=== PATIENT | female | born 1975 | race Caucasian/White ===

== ENCOUNTER 2021-01-27 12:41 | Emergency (ER) | payer SELFPAY ==
[2021-01-27] MEDS ORDERED: Lactated Ringers 1,000 ML IV ONE (13:47)
[2021-01-27] MEDS ORDERED: Ketorolac 30 MG/ML SDV IVPUSH ONE (13:47)
[2021-01-27] MEDS ORDERED: Metoclopramide 10 MG/2 ML SDV IVPUSH ONE (13:47)
[2021-01-27] MEDS ORDERED: Sodium Chloride 0.9% 10 ML Syringe FLUSH PRN (13:47)
[2021-01-27] MEDS ORDERED: diphenhydrAMINE 50 MG/ML SDV IVPUSH ONE (13:47)
--- NOTE | 2021-01-27 13:47 | EDM.PDOC ---
ED HPI GENERAL MEDICAL PROBLEM - General Chief Complaint: Headache Stated Complaint: MIGRAINE Time Seen by Provider: 01/27/21 13:47 Source of Information: Reports: Patient History Limitations: Reports: No Limitations - History of Present Illness INITIAL COMMENTS - FREE TEXT/NARRATIVE: Patient comes emergency department today with complaints of a headache nausea and vomiting. This patient has some chronic migraine where she has migraines about 3-4 times a month. She is on some prophylactic. She has had a headache the last couple of days and she is taking her typical prophylaxis or treatment abortive therapy without resolution. Since last night she has had primarily pain but on the right side of her head that is throbbing and behind her right eye this is very typical of her chronic migraines. This is not her worst migraine she is ever had. She has been nauseated and vomiting multiple times at home. She is unable to keep her other medications down. She complains of photophobia and phonophobia. She does have some visual changes in the lateral aspect of her vision which is typical for her migraine. No flashers. No double vision. No paresthesias of her upper or lower extremities. No change in the functionality of her upper or lower extremities. No chest pain no shortness of breath or difficulty breathing. No weakness dizziness lightheadedness. No syncope. No abdominal pain. No hematuria dysuria or urinary frequency. No black or tarry stools. No loss of bowel or bladder. No Covid exposure no Covid symptoms. Headache Pain Score (Numeric/FACES): 9 - Related Data Allergies Allergy/AdvReac Type Severity Reaction Status Date / Time calcium [From DHEA] Allergy Other Verified 01/27/21 12:55 calcium carbonate [From DHEA] Allergy Other Verified 01/27/21 12:55 codeine Allergy Other Verified 01/27/21 12:55 hydroxyzine [From Vistaril] Allergy Other Verified 01/27/21 12:55 prasterone (DHEA) [From DHEA] Allergy Other Verified 01/27/21 12:55 [id number] Antimigraine Allergy Other Verified 01/27/21 12:55 Agents Home Meds: Home Meds Insulin Degludec [Tresiba] 120 unit SQ DAILY 01/27/21 [History] Ubrogepant [Ubrelvy] 50 mg PO ASDIRECTED 01/27/21 [History] cloNIDine [Catapres-TTS 1] 1 patch TD Q7D 01/27/21 [History] tiZANidine HCl [Zanaflex] 4 mg PO TID PRN 01/27/21 [History] Past Medical History Cardiovascular History: Reports: Hypertension Neurological History: Reports: Migraines Endocrine/Metabolic History: Reports: Diabetes, Type II Social & Family History - Tobacco Use Tobacco Use Status *Q: Never Tobacco User ED ROS GENERAL - Review of Systems Review Of Systems: Comprehensive ROS is negative, except as noted in HPI. - Physical Exam Exam: See Below Exam Limited By: No Limitations General Appearance: Alert, WD/WN, No Apparent Distress, Obese (Morbidly) Eye Exam: Bilateral Eye: EOMI, PERRL Ears: Normal External Exam, Normal TMs Nose: Normal Inspection, Normal Mucosa Throat/Mouth: Normal Inspection, Normal Lips, Normal Teeth, Normal Oropharynx, Normal Voice Head Exam: Atraumatic, Normocephalic Neck: Normal Inspection, Supple, Non-Tender, Full Range of Motion Respiratory/Chest: No Respiratory Distress, Lungs Clear, Normal Breath Sounds, No Accessory Muscle Use, Chest Non-Tender Cardiovascular: Normal Peripheral Pulses, Regular Rate, Rhythm GI/Abdominal: Normal Bowel Sounds, Soft, Non-Tender (Female) Exam: Deferred Rectal (Female) Exam: Deferred Neuro Exam (Abbreviated): Alert, Oriented, CN II-XII Intact, Normal Cognition, Normal Gait, Normal Reflexes, No Motor/Sensory Deficits DTR: 0: Achilles (L), 2+: Bicep (R), Bicep (L), Patella (R), Patella (L), Achilles (R) Back Exam: Normal Inspection, Full Range of Motion Extremities: Normal Inspection, Normal Range of Motion, Non-Tender, No Pedal Edema, Normal Capillary Refill Psychiatric: Normal Affect, Normal Mood Skin Exam: Warm, Dry, Intact, Normal Color, No Rash Course - Vital Signs Last Recorded V/S: Last Vital Signs Temp 98.4 F 01/27/21 12:41 Pulse 95 01/27/21 12:41 Resp 18 01/27/21 12:41 BP 174/90 H 01/27/21 15:24 Pulse Ox 98 01/27/21 12:41 - Orders/Labs/Meds Orders: Active Orders 24 hr Category Date Time Status Peripheral IV Insertion Adult [OM.PC] Stat Oth 01/27/21 13:47 Ordered Labs: Laboratory Tests 01/27/21 01/27/21 Range/Units 14:03 14:03 WBC 8.0 (4.0-10.0) x10^3/uL RBC 4.62 (4.00-5.50) x10^6/uL Hgb 13.6 (12.0-16.0) g/dL Hct 40.6 (33.0-47.0) % MCV 87.9 (78.0-93.0) fL MCH 29.4 (26.0-32.0) pg MCHC 33.5 (32.0-36.0) g/dL RDW Coeff of Lalita 13.4 (10.0-15.0) % Plt Count 299 (130-400) x10^3/uL Neut % (Auto) 68.3 (50.0-80.0) % Lymph % (Auto) 21.7 L (25.0-50.0) % [place] % (Auto) 5.7 (2.0-11.0) % Eos % (Auto) 3.7 (0.0-4.0) % Baso % (Auto) 0.6 (0.2-1.2) % Sodium 140 (136-145) mmol/L Potassium 4.0 (3.5-5.1) mmol/L Chloride 104 (98-107) mmol/L Carbon Dioxide 30 (21-32) mmol/L Anion Gap 10.0 (5-15) mmol/L BUN 9 (7-18) mg/dL Creatinine 0.9 (0.55-1.02) mg/dL Est Cr Clr Drug Dosing TNP Estimated GFR (MDRD) > 60 Glucose 186 H (74-106) mg/dL Calcium 8.9 (8.5-10.1) mg/dL Corrected Calcium 9.30 (8.5-10.1) mg/dL Total Bilirubin 0.3 (0.2-1.0) mg/dL AST 11 L (15-37) U/L ALT 22 (14-59) U/L Alkaline Phosphatase 88 (46-116) U/L C-Reactive Protein 0.9 (<=0.9) mg/dL Total Protein 7.1 (6.4-8.2) g/dL Albumin 3.5 (3.4-5.0) g/dL Globulin 3.6 Albumin/Globulin Ratio 0.97 TSH, Ultra Sensitive 0.374 (0.358-3.74) uIU/mL Meds: Medications Discontinued Medications Generic Name Dose Route Start Last Admin Trade Name Montyq PRN Reason Stop Dose Admin Diphenhydramine HCl 25 mg 01/27/21 13:47 01/27/21 14:16 Diphenhydramine 50 Mg/Ml Sdv IVPUSH 01/27/21 13:48 25 mg ONETIME ONE Administration Lactated Ringer's 1,000 mls @ 999 mls/hr 01/27/21 13:47 01/27/21 14:15 Ringers, Lactated IV 01/27/21 14:47 999 mls/hr ONETIME ONE Administration Ketorolac Tromethamine 30 mg 01/27/21 13:47 01/27/21 14:19 Ketorolac 30 Mg/Ml Sdv IVPUSH 01/27/21 13:48 30 mg ONETIME ONE Administration Lisinopril 10 mg 01/27/21 15:14 01/27/21 15:24 Lisinopril 10 Mg Tab PO 01/27/21 15:15 10 mg ONETIME ONE Administration Metoclopramide HCl 10 mg 01/27/21 13:47 01/27/21 14:17 Metoclopramide 10 Mg/2 Ml Sdv IVPUSH 01/27/21 13:48 10 mg ONETIME ONE Administration Promethazine HCl 1 packet 01/27/21 15:14 01/27/21 15:24 Take Home: Promethazine 25 Mg, 4 Tab Pack PO 01/27/21 15:15 1 packet ONETIME ONE Administration Sodium Chloride 10 ml 01/27/21 13:47 Sodium Chloride 0.9% 10 Ml Syringe FLUSH ASDIRECTED PRN Keep Vein Open - Re-Assessments/Exams Free Text/Narrative Re-Assessment/Exam: 01/27/21 The patient is noted to be quite hypertensive in the emergency department. She relates that she is only on a clonidine patch for her blood pressure. She was initially started by her primary care provider in [place] on 2.5 the lisinopril and as it did not help her blood pressure it was discontinued. She was then started on 25 mg of losartan which once again did not improve her blood pressure so it was removed. She then was placed on the clonidine patch which she continues to have blood pressure is quite elevated. This is not the worst headache she is ever had and her blood pressure has been chronically elevated so I think it is unlikely to be from her blood pressure. This is a typical migraine for her. IV of LR 1 L wide open. Ketorolac 30 mg IV push. Benadryl 25 mg IV push. Metoclopramide 10 mg IV push. The patient's headache improved dramatically down to about a 3 out of 10. Photophobia and phonophobia has resolved. Nausea has resolved. She feels quite a bit better and back to baseline migraine or headache. Her blood pressure has improved down to about 170/80. Her laboratory evaluation is rather unremarkable other than a mild elevation of her blood sugar. She has normal creatinine and potassium. She is not going to be back to her primary care provider in the next couple of weeks that she is on the road with her who is a embosser operator. I explained to her that it is highly important for her to control her blood pressure especially with her diabetes. She should be on some type of MEEK or ARB. She did not fail that medication previously she was only on a very small amount. I will start her on lisinopril 10 mg p.o. daily. As she is a diabetic and who is hypertensive as well. Can have her follow-up with her primary care provider contact them on Thursday to make an appointment as soon as possible for recheck. We will also try some Phenergan for abortive therapy for her migraines as well. She is comfortable with this plan and her questions are answered. Departure - Departure Time of Disposition: 15:16 Disposition: Home, Self-Care 01 Clinical Impression: Migraine Hypertension Qualifiers: Hypertension type: unspecified Qualified Code(s): I10 - Essential (primary) hypertension - Discharge Information Instructions: Recurrent Migraine Headache, [id number], Hypertension, Adult, [id number] Referrals: PCP,Not In Area [Primary Care Provider] - Forms: ED Department Discharge Additional Instructions: Make sure and rest and decrease stimulation to your head. Tylenol as needed for headache. Make sure and drink plenty of fluids. Continue previous migraine medication as well as Blood pressure medications. Start Lisinopril 10mg daily. RX given to you. Recheck BP and labs in 1 week with PCP. Phenergan 1 tablet every 6 hrs as needed for migraine. Caution sedation. RX given to the patient. Return to the ED if new or worsening symptoms. Follow up with PCP in 1 week for recheck. Sepsis Event Note (ED) - Evaluation Sepsis Screening Result: No Definite Risk - Focused Exam Vital Signs: Vital Signs Temp Pulse Resp BP BP Pulse Ox 01/27/21 15:24 174/90 H 01/27/21 15:12 174/90 H 01/27/21 12:41 98.4 F 95 18 182/100 H 98 - My Orders Last 24 Hours: My Active Orders 01/27/21 13:47 Peripheral IV Insertion Adult [OM.PC] Stat - Assessment/Plan Last 24 Hours: My Active Orders 01/27/21 13:47 Peripheral IV Insertion Adult [OM.PC] Stat
[2021-01-27 14:43] LABS: CHLORIDE,CL 104 mmol/L (98-107); SODIUM,NA 140 mmol/L (136-145)
[2021-01-27] MEDS ORDERED: Take Home: Promethazine 25 MG, 4 Tab Pack PO ONE (15:14)
[2021-01-27] MEDS ORDERED: Lisinopril 10 MG Tab PO ONE (15:14)
== END 2021-01-27 15:29 | disposition home or self-care (01) ==
LOC: VM.ED 12:41
DX: G43.909 Migraine, unspecified, not intractable, without status migrainosus (principal); I10 Essential (primary) hypertension; E11.9 Type 2 diabetes mellitus without complications; Z88.5 Allergy status to narcotic agent; Z88.8 Allergy status to other drugs, medicaments and biological substances; Z79.4 Long term (current) use of insulin; Z79.899 Other long term (current) drug therapy
CPT/HCPCS: 80053; 84443; 85025; 86140; 96374; 96375; 99283; 99284-25; A9270-GY; J1200; J1885; J2765; J7120